=== PATIENT | female | born 1980 | race Caucasian/White ===

== ENCOUNTER 2024-12-11 21:58 | Inpatient (IN) | payer MEDICAID ==
[~2024-12-11] VITALS: Ht 154.9 cm; Wt 70.0 kg
--- NOTE | 2024-12-11 22:14 | ELECTROCARDIOGRAPH REPORT ---
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 Marlena Gagnon Measurements Intervals [place] Rate: 64 P: 31 AR: 125 QRS: 36 QRSD: 106 T: 33 QT: 435 QTc: 449 Interpretive Statements Sinus rhythm Probable left atrial enlargement RSR' in V1 or V2, right VCD or RVH Electronically Signed On 12-11-2024 23:33:[address] Marlena Gagnon Please click the below link to view image of tracing.
[2024-12-11 22:19] LABS: MEAN PLATELET VOLUME 7.9 FL (7.4-10.4); RED CELL DISTRIBUTION WIDTH 13.8 % (11.5-14.5)
--- NOTE | 2024-12-11 22:29 | Physician Documentation ---
History of Present Illness ~ Chief Complaint: Syncope Stated Complaint: SYNCOPAL EPISODE Time Seen by MD: 22:00 OK to notify your PCP?: Yes Source: patient, RN/MD, RN notes reviewed, old records Mode of Arrival: EMS Exam Limitations: no limitations HPI 44 year old female with a history of cardiac ablations presents to the emergency department via EMS for complaints of a syncopal episode that happened tonight. She states she was standing at her fathers truck talking with family when she collapsed and became unresponsive. She states prior to her episode she felt di zzy and light headed but denies any chest pain or palpitations. Patient was on blood thinners and had a positive head strike. She denies any drugs or alcohol. Of note, she states that she has not been sleeping well and having a lot of stress causing insomnia. Medication Reconciliation Allergies: Coded Allergies: hydrocodone (Verified Allergy, Unknown, 12/11/24) Scheduled Ascorbic Acid (Vitamin C), 1,000 TAB PO DAILY, (Reported) Multivitamin (Multi Vitamin Daily), 1 TAB PO DAILY, (Reported) Past Medical History Past Medical History: *CARDIOVASCULAR* Past Surgical History: other Smoking Status: Never smoker Alcohol Use: None Drug Use: none Review of Systems All Other Systems at this time: Reviewed and Negative ROS As stated above in the HPI, otherwise all systems are reviewed and negative. Physical Exam Vital Signs: RN Vital Signs have been reviewed: Yes, Temperature: 97.8, Source: Oral, Heart Rate: 62, Respiratory Rate: 10, BP: 106/62, Pulse Oximetry: 99, Weight: 70.000 Pulse Oximetry Reflects: adequate oxygenation Physical Exam General: The patient is well developed, well nourished, nontoxic appearing and is in no acute distress. Skin: [place], warm and dry with no rashes. HEENT: Head was normocephalic and atraumatic. Eyes - pupils equal, round, reactive to light and accommodation. Extraocular movements were intact. Conjunctivae were nonicteric. Ears - bilateral tympanic membranes were normal. The mouth and oropharynx were clear with moist mucous membranes. There were no pharyngeal exudates or erythema. Neck: Supple and nontender. There was no jugular venous distention, lymphadenopathy, thyromegaly or masses. Chest: Clear to auscultation bilaterally without wheezes, rales or rhonchi. No accessory muscle use. No dullness to percussion. Heart: Rate regular and rhythmic. S1, S2. No murmurs. Palpation of the chest wall was normal. No rubs or thrills. Abdomen: Soft, nontender and nondistended. Positive bowel sounds. No guarding or rebound. No hepatosplenomegaly or palpable masses. Extremities: No cyanosis, clubbing or edema. The patient moves all extremities. Pulses were equal and symmetric. Neurologic: Cranial nerves II-XII were intact. Sensation was intact to light touch throughout. Motor strength was 5/5 in all four extremities. Deep tendon reflexes were intact in both upper and lower extremities. Psychologic: The patient was oriented to person, place and time. The patient demonstrated appropriate judgement and insight. Progress Progress Note 2330: The case was discussed with the hospitalist who was informed on the patients case and kindly agreed to admission. Results/Orders Reviewed/noted all lab results: Yes Results/Orders Orders - NICOLAS GAGNON MD Monitor (12/11/24 22:07) Saline Lock (12/11/24 22:07) Oxygen (12/11/24 22:07) Electrocardiogram (12/11/24 22:07) Ct Head (12/11/24 22:28) Page Hospitalist (12/11/24 22:54) Fill Out Med Reconciliation (12/11/24 22:54) Echocardiogram (12/11/24 23:05) Completed Orders - NICOLAS GAGNON MD Cbc/Diff (12/11/24 22:07) BMP (12/11/24 22:07) PBNP (12/11/24 22:07) Electrocardiogram (12/11/24 22:07) Hs Troponin I W Calculations (12/11/24 22:07) Hs Troponin I W Calculations (12/12/24 00:07) Hs Troponin I W Calculations (12/12/24 01:07) Ct Head (12/11/24 22:28) Drug Screen, Urine (12/11/24 22:28) Normal Saline 1000ml (0.9% Sodium Chlori (12/11/24 22:30) Ethanol (12/11/24 22:12) Potassium Cl Sr Tablet (K-Dur Tablet) (12/11/24 22:55) Magnesium Oxide Tablet (Mag-Ox 400mg Tab (12/11/24 22:55) Liver Panel (12/11/24 22:12) MG (12/11/24 22:12) Normal Saline 1000ml (0.9% Sodium Chlori (12/11/24 23:00) Pt Inr (12/11/24 22:57) PTT (12/11/24 22:57) Ondansetron Inj. (Zofran 4mg/2ml Vial) (12/11/24 23:12) Hgb A1c (12/11/24 22:12) Medications Received in ER Medications (Trade) Dose Ordered Sig/Odalis Route PRN Reason Start Time Stop Time Status Last Admin Dose Admin (0.9% sodium chloride (NS) 1000ml IV soln) 1,000 ml ONCE ONCE IVB 12/11/24 22:30 12/11/24 22:31 DC 12/11/24 22:46 1,000 ML (K-DUR tablet) 20 meq ONCE ONCE PO 12/11/24 22:55 12/11/24 23:12 DC 12/11/24 23:21 20 MEQ (mag-Ox 400mg tablet) 400 mg ONCE ONCE PO 12/11/24 22:55 12/11/24 22:56 DC 12/11/24 23:21 400 MG (0.9% sodium chloride (NS) 1000ml IV soln) 1,000 ml ONCE ONCE IVB 12/11/24 23:00 12/11/24 23:12 DC 12/11/24 23:21 1,000 ML (Zofran 4mg/2ml vial) 4 mg ONCE STAT IV 12/11/24 23:12 12/11/24 23:14 DC 12/11/24 23:21 4 MG Vital Signs 12/11/24 12/11/24 12/11/24 12/11/24 22:00 22:10 22:17 22:52 Temp 97.8 Pulse 76 62 66 Resp 16 16 10 12 B/P (MAP) 104/63 106/62 (77) 98/69 (79) Pulse Ox 98 99 99 12/11/24 12/11/24 12/11/24 23:06 23:07 23:07 Pulse 63 93 71 B/P (MAP) 98/59 103/75 103/72 Laboratory Tests Test 7/24/25 22:12 White Blood Count 9.3 Red Blood Count 4.56 Hemoglobin 14.1 Hematocrit 40.9 Mean Corpuscular Volume 89.6 Mean Corpuscular Hemoglobin 31.0 Mean Corpuscular Hemoglobin Concent 34.6 Red Cell Distribution Width 13.8 Platelet Count 343 Mean Platelet Volume 7.9 Neutrophils (%) (Auto) 44.0 Lymphocytes (%) (Auto) 46.9 Monocytes (%) (Auto) 5.0 Eosinophils (%) (Auto) 2.8 Basophils (%) (Auto) 1.3 H Neutrophils # (Auto) 4.1 Lymphocytes # (Auto) 4.3 Monocytes # (Auto) 0.5 Eosinophils # (Auto) 0.3 Basophils # (Auto) 0.1 CBC Comment Prothrombin Time 10.2 INR International Normalized Ratio 1.0 Activated Partial Thromboplast Time 32 Coagulation Comments Sodium Level 139 Potassium Level 3.1 L Chloride Level 102 Carbon Dioxide Level 24.6 Anion Gap 12 Blood Urea Nitrogen 10 Creatinine 0.84 Estimated GFR/1.73 m2 73 BUN/Creatinine Ratio 11.9 Glucose Level 203 H Hemoglobin A1c 5.5 Calcium Level 9.3 Magnesium Level 2.1 Total Bilirubin 0.3 Direct Bilirubin 0.1 Aspartate Amino Transf (AST/SGOT) 18 Alanine Aminotransferase (ALT/SGPT) 23 Alkaline Phosphatase 60 Troponin I High Sensitivity 5 Pro-B-Type Natriuretic Peptide 115 Total Protein 7.2 Albumin 3.9 Globulin 3.3 Albumin/Globulin Ratio 1.2 Chemistry Comments Ethyl Alcohol Level < 10 Re-Evaluation Re-Evaluation : Re-Evaluation: Improved Progress Patient was seen and examined. Patient is given reassurance. The patient received fluids her blood pressure was a bit low. There was no reason for her to be dehydrated or hypotensive. Patient's laboratory work did not suggest any signs of dehydration. CBC WBC all within normal limits without leukocytosis or anemia. Patient is chemistry LFTs and cardiac enzymes were all within normal limits except glucose slightly elevated to 0 three patient is potassium borderline low at 3.1 patient received both magnesium and potassium all pills magnesium level was therapeutic at 2.1 tox screen was positive only for marijuana negative alcohol or any other drugs in the urinalysis showed a specific gravity of 1.005 also no signs of any dehydration at this time. Patient had a CT of the head which showed no mass or intracranial bleed. After fluids and electrolytes cardiac etiology was considered she did have a history of ablation there was no report of SVTs her symptoms in the past for slightly different which were syncopal episode but she had pain radiating to her left arm that did not occur at this time. I then contacted the hospitalist who kindly agreed to admit the patient for further workup and care. Continuous court monitor interpretation shows normal sinus rhythm heart rate 70s, no ectopy, normal, my interpretation. Pulse oximetry monitor interpretation shows normal oxygenation 98% room air, normal, my interpretation. 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 Nicolas Gagnon Measurements Intervals [place] Rate: 64 P: 31 [place]: 125 QRS: 36 QRSD: 106 T: 33 QT: 435 QTc: 449 Interpretive Statements Sinus rhythm Probable left atrial enlargement RSR' in V1 or V2, right VCD or RVH Electronically Signed On 12-11-2024 23:33:[address] Nicolas Gagnon Please click the below link to view image of tracing. EKG Date and Time:12/11/242209 Electronically Signed by: NICOLAS GAGNON MD Date and Time: 12/11/[address] : Impression EXAM: CT CT HEAD INDICATION: aloc TECHNIQUE: CT of the head without intravenous contrast. Radiation Dose : 1. Head: CT Dose: CTDI volume is 53.15 mGy. Dose-length product is 896.7 mGy*cm The dose indicators for CT are the volume Computed Tomography (CT) Dose Index (CTDIvol) and the Dose Length Product (DLP), and are measured in units of mGy and mGy-cm, respectively. These indicators are not patient dose, but values generated from the CT scanner acquisition factors. The report includes radiation exposure data for exposures received during this examination. COMPARISON: None FINDINGS: There is no evidence of acute intracranial hemorrhage, extra-axial collection, mass effect, midline shift, herniation or hydrocephalus. The ventricles, sulci and cisterns are age appropriate. The garcia-white differentiation is intact. The visualized paranasal sinuses and mastoid air cells are clear. The surrounding soft tissues and osseous structures are unremarkable. IMPRESSION: 1. No acute intracranial abnormality. Radiation optimization: All CT scans at this facility use at least one of these dose optimization techniques: automated exposure control mA and/or kV adjustment per patient size (includes targeted exams where dose is matched to clinical indication) or iterative reconstruction. Electronically Signed by:JUVENAL PADILLA MD Date & Time: 12/11/24 0440 Heart Score: Heart Score Response (Comments) Value History Slightly Suspicious 0 EKG Normal 0 Age 45-64 1 Risk Factors 1 or 2 risk factors 1 Troponin Normal limit 0 Total 2 Medical Decision Making Additional info obtained from: old records Differential Dx:Considerations: Include: anemia, CVA, dehydration, dysrhythmia, electrolyte disorder, hypoglycemia, hypovolemia, myocardial infarction, pulmonary embolus, vasovagal, other Departure Time of Disposition: 23:49 Disposition: ADMITTED INPATIENT Admitted to Inpatient Unit: yes, to hospitalist Admission Level of Care: PCU with Tele Impression: Primary Impression: Syncope Qualified Codes: R55 - Syncope and collapse Additional Impression: Hypokalemia Condition: Guarded Referrals: NO PRIMARY CARE PROVIDER (PCP) Education Educated: Patient Educated regarding: diagnosis Signature Scribe Signature: Scribed for Nicolas aGgnon MD by Aj Maier . 12/11/24 22:39 Attestation: The note accurately reflects work and decisions made by me.Nicolas Gagnon MD 12/11/24 22:29 NICOLAS GAGNON MD Dec 11, 2024 22:29 AJ DELGADO Dec 11, 2024 22:39
[2024-12-11 22:41] LABS: CREATININE 0.84 MG/DL (0.40-0.90); ETHANOL < 10 MG/DL (<10); PRO BRAIN NATRIURETIC PEPTIDE 115 PG/ML (0-125); TOTAL CARBON DIOXIDE 24.6 MMOL/L (24-32); eCRCL 64 ML/MIN; eGFR 73 ML/MIN
[2024-12-11] MEDS: normal saline 1000ML IV soln IVB ONE ×2 (22:46→23:21)
--- NOTE | 2024-12-11 22:58 | RADIOLOGY REPORT ---
EXAM: CT CT HEAD INDICATION: aloc TECHNIQUE: CT of the head without intravenous contrast. Radiation Dose : 1. Head: CT Dose: CTDI volume is 53.15 mGy. Dose-length product is 896.7 mGy*cm The dose indicators for CT are the volume Computed Tomography (CT) Dose Index (CTDIvol) and the Dose Length Product (DLP), and are measured in units of mGy and mGy-cm, respectively. These indicators are not patient dose, but values generated from the CT scanner acquisition factors. The report includes radiation exposure data for exposures received during this examination. COMPARISON: None FINDINGS: There is no evidence of acute intracranial hemorrhage, extra-axial collection, mass effect, midline s hift, herniation or hydrocephalus. The ventricles, sulci and cisterns are age appropriate. The garcia-white differentiation is intact. The visualized paranasal sinuses and mastoid air cells are clear. The surrounding soft tissues and osseous structures are unremarkable. IMPRESSION: 1. No acute intracranial abnormality. Radiation optimization: All CT scans at this facility use at least one of these dose optimization ronny hniques: automated exposure control mA and/or kV adjustment per patient size (includes targeted exam s where dose is matched to clinical indication) or iterative reconstruction.
[2024-12-11 23:11] LABS: APTT 32 SECONDS (22-32); INR 1.0 INR
[2024-12-11] MEDS: ondansetron/PF 4mg/2ml inj IV STA (23:21)
[2024-12-11] MEDS: potassium Cl 20 mEq SR tablet PO ONE (23:21)
[2024-12-11] MEDS ORDERED: MULT-1085 PO (23:54)
[2024-12-11] MEDS ORDERED: ASCO100031 PO (23:54)
[2024-12-12] VITALS (9 sets, daily range): BP systolic 95–125; BP diastolic 56–84; PULSE 58–97; RESP 16–18; TEMP 97.5–98.1; O2SAT 98–100
[2024-12-12 01:25] LABS: URINE AMPHETAMINE SCREEN NEGATIVE (Neg); URINE BARBITUATE SCREEN NEGATIVE (Neg); URINE BENZODIAZEPINES SCREEN NEGATIVE (Neg); URINE CANNABINOID SCREEN POSITIVE (Neg); URINE COCAINE SCREEN NEGATIVE (Neg); URINE METHADONE SCREEN NEGATIVE (Neg); URINE OPIATE SCREEN NEGATIVE (Neg)
[2024-12-12 01:26] LABS: URINE PHENCYCLIDINE SCREEN NEGATIVE (Neg)
[2024-12-12] MEDS ORDERED: mag hydrox/Alum hydrox/simeth 30ml oral suspension PO PRN (02:25)
[2024-12-12] MEDS ORDERED: magnesium sulf-water 2g/50mL 50 ML IV PRN (02:25)
[2024-12-12] MEDS ORDERED: potassium Cl 40MEQ/1/2NS 520ml 520 ML IV PRN (02:25)
[2024-12-12] MEDS ORDERED: HYDROcodone/acetaminophen 5mg/325mg tablet PO PRN (02:25)
[2024-12-12] MEDS ORDERED: magnesium sulf-water 4G/100mL 100 ML IV PRN (02:25)
[2024-12-12] MEDS ORDERED: magnesium hydroxide 30ml (MOM) UD suspension PO PRN (02:25)
[2024-12-12] MEDS ORDERED: potassium Cl 20 mEq SR tablet PO PRN ×2 (02:25)
[2024-12-12] MEDS ORDERED: ondansetron/PF 4mg/2ml inj IV PRN (02:25)
[2024-12-12] MEDS ORDERED: magnesium Cl slow-release 64mg tablet PO PRN (02:25)
--- NOTE | 2024-12-12 02:29 | HISTORY AND PHYSICAL-Residence ---
History & Physical Providers to CC Resident Creating Document: KESHAWN SOLORZANO, RES CC: PASTOR GALDAMEZ MD ~ History of Present Illness Reason for Admit\Complaint: dizziness History of Present Illness A 44-year-old female with past medical history of SVT status post ablation in 2011 presented to the ED after she had an episode of passing out at about 9:00 p.m. today. Patient states that she was feeling dizzy and nauseous prior to the episode and has lost consciousness for less than a minute. Patient denies postictal confusion. Patient states that during the episode patient felt the lower extremities were all tingling with hands curling up and feeling tight. At the time of the episode, patient was standing out for about 5 minutes patient fell and hit her elbow on the right side and is painful. Patient denies chest pain, palpitation, shortness of breath prior to the episode. Patient's blood sugar was not checked at the time of the episode or during the transit to the ED. Allergies: Coded Allergies: hydrocodone (Verified Allergy, Unknown, 12/11/24) Home Medications Home Medications Active Reported Multi Vitamin Daily (Multivitamin) 1 Each Tablet 1 Tab PO DAILY 30 Days Vitamin C (Ascorbic Acid) 1,000 Mg Tablet 1,000 Tab PO DAILY 15 Days DIRECTED Past Medical History Past Medical History SVT status post ablation Ruptured ovarian cyst Ectopic Past Surgical History Surgical History Comment Hysterectomy Ablation Past Social History Social History Comment Smoked one pack of cigarettes for 32 years, quit two years ago Now is vaping tobacco Consumes marijuana Consumes alcohol occasionally Does not consume drugs Lives at home with son Primary care : [facility] Alcohol Use: None Drug Use: None ROS ROS All other systems reviewed in full and negative except for the pertinent positives mentioned in the HPI Exam Vitals: Vital Signs Date Time Temp Pulse Resp B/P (MAP) Pulse Ox O2 Delivery O2 Flow Rate FiO2 12/12/24 02:00 69 12/12/24 01:13 16 94/55 (68) 97 12/11/24 22:00 97.8 General: General: Alert, awake, oriented, not in acute distress HEENT: PERRLA, no icterus, pallor, lymphadenopathy, carotid bruit Respiratory system: Bilateral vesicular breath sounds heard, no adventitious breath sounds CVS: S1-S2 heard, no murmurs/rubs/gallop GI: Soft, nontender, no organomegaly, no guarding/rigidity, bowel sounds present Neuro: No focal neurological deficits present Extremities: No edema cyanosis clubbing/deformities Skin: Warm and dry Diagnostic Data Last Recorded Lab Results: 12/11/24221112/11/242211 Diagnostic Data: Laboratory Tests Test 12/11/24 22:12 Prothrombin Time 10.2 SECONDS (9.0-12.0) INR International Normalized Ratio 1.0 INR Activated Partial Thromboplast Time 32 SECONDS (22-32) Coagulation Comments Advance Care Planning Advanced Care plannin - 30 Minutes (I spent 20 minutes discussing various resuscitative measures and the patient decided to be full code) Additional Plan Assessment: A 44-year-old female with past medical history of SVT status post ablation presented to the ED after an episode of syncope. Patient is admitted for the evaluation management of syncope. Plan: Syncope, under evaluation Vasovagal vs hypoglycemia PE, rule out CT head: Negative for any acute intracranial disease EKG: Normal sinus rhythm Orthostatic vitals negative Follow up with D-dimer U tox positive for marijuana Follow up with echo, D-dimer Continue to monitor telemetry Fall Follow up with Right Elbow x-ray SVT status post ablation Not on any medication right now Code status: Full code Diet: Heart healthy DVT prophylaxis: Heparin Disposition: Admit to ortho, follow up with echo Keshawn Solorzano MD Internal Medicine, PGY 2 Discussed case with resident and agree with the assessment and plan above with no changes. Pastor Galdamez MD Critical Care Date of Service: Dec 11, 2024 Billing Provider: PASTOR GALDAMEZ MD, SIVA, RES Dec 12, 2024 02:29 PASTOR GALDAMEZ MD Dec 13, 2024 10:12
[2024-12-12 02:45] LABS: LEUKOCYTE ESTERASE ,URINE NEGATIVE (Neg); NITRITES, URINE NEGATIVE (Neg); OCCULT BLOOD,URINE NEGATIVE (Neg)
[2024-12-12 02:46] LABS: UA COLLECTION TYPE CLN CATCH MIDSTREAM
[2024-12-12] MEDS: normal saline 1000ml 1,000 ML IV SCH (03:13)
--- NOTE | 2024-12-12 06:24 | RADIOLOGY REPORT ---
CLINICAL INDICATION: right elbow pain after fall TECHNIQUE: DI ELBOW,LIMITED (AP/LAT) Comparison: None FINDINGS/IMPRESSION: : There is no evidence of acute fracture or dislocation. Soft tissues are unremarkable.
[2024-12-12] MEDS: heparin, porcine 5000 units/ml vial SQ SCH (08:00)
[2024-12-12] MEDS ORDERED: ASCORBIC ACID PO SCH (08:00)
[2024-12-12] MEDS: K and/or MAG REPLACEMENT MC SCH (08:00)
[2024-12-12] MEDS: docusate sod 100mg capsule PO SCH (08:00)
[2024-12-12] MEDS ORDERED: heparin, porcine 5000 units/ml vial SQ SCH (08:00)
[2024-12-12] MEDS ORDERED: non-formulary drug (Multivitamin (Multi Vitamin Daily) 1 TAB) PO SCH (08:00)
[2024-12-12] MEDS: multivitamins, therapeutics tablet PO SCH (08:46)
--- NOTE | 2024-12-12 15:21 | PROCEDURE NOTE ---
Procedure Note Providers to CC ~ Interpretation: Susan Moore EEG Note # Demographics Type of EEG Read: - Routine EEG - video Patient Location: - Inpatient - STAT read requested First Name: Constanza Last Name: Antonio Date of : 1980 Age: 44 Gender: Female Facility: [facility] Time of Initial Page ([place] ): 12/12/2024 13:44 Time of Return Call ([place] Time): 12/12/2024 13:44 # EEG Interpretation Start Time of EEG Read ([place] ): 12/12/2024 14:05 Stop Time of EEG Read ([place] ): 12/12/2024 14:25 Duration: 0h 20m Technical Details: - The EEG electrodes were placed using the standard International 10-20 system of electrode placement. Video and an accessory EKG lead were used during the course of this study. - This study was recorded using the [id number] EEG software Indication: - seizure # Description Photic Stimulation: Performed Hyperventilation: performed Phases Captured: - awake - drowsy Symmetry: symmetric Posterior Dominant Rhythm: - present, attenuates on eye opening 11 Hz Amplitude: normal Reactivity: yes Variability: yes Continuity: continuous # Abnormalities Stimulation: - photic stimulation does NOT cause abnormalities - hyperventilation does NOT cause abnormalities Epileptiform Abnormalities: - NOT present Focal Slowing: no Seizure: - NOT present # Impression Impression: normal # Clinical Correlation Clinical Correlation: A normal EEG does not exclude nor support the diagnosis of epilepsy. # Logistics Telemedicine: remote EEG review: EEG reviewed remotely # Demographics First Name: Constanza Last Name: Antonio Facility: [facility] ROOSEVELT PANDYA MD Dec 12, 2024 15:21
--- NOTE | 2024-12-12 15:30 | ELECTROCARDIOGRAPH REPORT ---
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 Berhane Cordova Measurements Intervals [place] Rate: 53 P: 42 IA: 125 QRS: 29 QRSD: 108 T: 29 QT: 425 QTc: 399 Interpretive Statements Sinus bradycardia Abnormal R-wave progression, early transition Electronically Signed On 12-13-2024 12:03:[address] Berhane Cordova Please click the below link to view image of tracing.
--- NOTE | 2024-12-12 16:06 | CARDIOLOGY REPORT ---
APPROVED REPORT EXAM: Comprehensive 2D, Doppler, and color-flow Echocardiogram. 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 117.7 cm/s AoV VTI 25.6 cm AO Peak GR. 5.5 mmHg AO Mean GR. 3 mmHg LVOT VTI 22.20 cm LVOT Peak Nate. 107.0 cm/s BREANN(VTI)/BSA 2.68 cm2/m2 BREANN (VTI) 2.68 cm2 Mitral Valve MV E Velocity 86.7 cm/s MV DECEL TIME 256 ms MV A Velocity 53.7 cm/s E/A Ratio 1.6 TDI Lateral E' P. V15.70 cm/s E/Lateral E' 5.5 Pulmonary Valve PAEDP11.36 mmHg Tricuspid Valve TR P. Velocity 225 cm/s RAP ESTIMATE 10 mmHg TR Peak Gr. 20 mmHg RVSP 30 mmHg LEFT VENTRICLE Normal LV size and wall thickness. Overall systolic function is normal. Overall LVEF is 70%. RIGHT VENTRICLE RV is normal size and function. PA systolic pressure of 30 mm of mercury. ATRIA The left atrium size is normal. AORTIC VALVE Trileaflet AV appears mildly sclerotic without stenosis. No insufficiency. MITRAL VALVE Mitral valve leaflets are mildly thickened with mild annular calcification. No stenosis. Trace regurg itation. TRICUSPID VALVE The tricuspid valve is normal in structure with trace regurgitation. PULMONIC VALVE The pulmonary valve is normal in structure with physiologic insufficiency. GREAT VESSELS The aortic root is normal in size. The ascending aorta is normal in size. The IVC is normal in size a nd collapses >50% with inspiration. PERICARDIUM Normal pericardium. No effusion. Other Information Study Quality: Adequate Conclusion Overall LVEF is 70%. Normal LV size and wall thickness. Overall systolic function is normal. RV is normal size and function. PA systolic pressure of 30 mm of mercury. Trileaflet AV appears mildly sclerotic without stenosis. No insufficiency. Mitral valve leaflets are mildly thickened with mild annular calcification. No stenosis. Trace regu rgitation. The tricuspid valve is normal in structure with trace regurgitation. The pulmonary valve is normal in structure with physiologic insufficiency. Normal pericardium. No effusion.
--- NOTE | 2024-12-12 16:47 | [facility] NE[facility] CONSULT REPORT ---
[facility] Procedure Note [facility] Procedure Note Consult [facility] Note # Demographics Consult Type: General Neurology Patient Location: Inpatient First Name: ALFONSO Last Name: MARSHAL Date of : 1980 Age: 44 Gender: Female Facility: [facility] Time of Initial Page (): 12/12/2024 16:27 Time of Return Call ( Time): 12/12/2024 16:28 # HPI Chief Complaint: Syncope History: 44 yo F with hx of SVT s/p ablation p/w a syncopal episode last night. She was standing at the truck door and fell dizzy, lightheaded and nauseated. She then passed out. No witnessed jerking movement. It took her a min to wake up. No tongue biting or urinary incontinence. She then was not able to open her eyes for 10-15 min. No hx of seizure. # Exam Mental Status: - awake - alert and oriented x 3 - follows commands Language: - normal speech - no aphasia - no dysarthria Cranial Nerves: - extra ocular movements intact - no facial droop - normal facial sensation Motor: - normal strength - normal bulk - no drift Sensory: - normal sensation Cerebellar: - normal cerebellar exam # ROS Additional: - complete review of systems otherwise negative # PMH-FH-SH Past Medical History: SVT # Data Head CT: - no bleed # Assessment Impression: Syncopal episode, could be orthostatic vs cardiac No clear seizure semiology and EEG is normal # Plan Imaging: (urgency: routine): - MRI Brain with AND without contrast Diagnostic Test: - echo without bubble study Therapy/Evaluation: - PT/OT evaluation - Check orthostatic VS Other: - If patient has any neurological deterioration please call me back immediately - telemetry monitoring # Logistics Attestation of consult completion: The patient is located at: [facility]. Facility staff participated in the visit. I performed this telemedicine visit from my offsite office utilizing interactive 2 way audio and visual telecommunication technology. Total time spent in telemedicine encounter: I spent 19 minutes reviewing clinical data and/or imaging, obtaining history, examining the patient, communicating with the onsite care team, and in preparation of this report. # Demographics First Name: ALFONSO Last Name: MARSHAL Facility: [facility] Electronically signed at 12/12/2024 16:46 ( Time) by Efra Jackson MD Neuro Consult Order placed for: Yes EFRA JACKSON MD Dec 12, 2024 16:47
--- NOTE | 2024-12-12 16:59 | PROGRESS NOTE- Residence ---
Progress Note - Resident Providers to CC Resident Creating Document: JUAN SCHMIDT, RES ~ Antibiotic Timeout Antibiotic Ordered?: No Subjective Patient was seen and examined at bedside, she denied any dizziness/ chest pain or palpitations since admission. In 2011, she underwent an ablation for suspected SVT, but she does not remember the etl consultant and has not followed up since that time. Additionally, she has not visited her primary care physician in recent years. Objective Vital Signs Date Time Temp Pulse Resp B/P (MAP) Pulse Ox O2 Delivery O2 Flow Rate FiO2 12/12/24 10:00 98.1 58 16 105/62 (76) 99 Room Air Result Diagram: 12/11/24 2212 12/12/24 0310 Awake , alert, and oriented x4, resting comfortably in the bed, in no acute distress HEENT: Atraumatic, normocephalic, EOMI, anicteric sclera ; pink conjunctiva Neck: Trachea midline. Supple, full range of motion, no JVD Cardiac: Regular rhythm, regular rate with no murmurs all over the precordium. Respiratory: Equal breath sounds bilaterally, no tachypnea, no wheezing ,rub or rales, Chest wall is symmetric and without deformity. Gastrointestinal: Abdomen symmetric, non-distended, soft, non-tender, normal bowel sounds x4 quadrant, normoactive, no hepatosplenomegaly Musculoskeletal: No pedal edema, no cyanosis Neurological: Speech is clear, alert, and oriented x 4. No motor or sensory deficit, deep tendon reflexes normal, cerebellar intact. Cranial nerves II-XII intact. Skin: Warm and dry Coagulation Studies Laboratory Tests Test 12/11/24 22:12 12/12/24 04:51 Prothrombin Time 10.2 SECONDS (9.0-12.0) INR International Normalized Ratio 1.0 INR Activated Partial Thromboplast Time 32 SECONDS (22-32) Coagulation Comments D-Dimer 0.36 MG/L FEU (0-0.50) D-Dimer Comment Advance Care Planning Advanced Care plannin - 30 Minutes Assessment Assessment The patient is a 44-year-old female with a remote history of ablation in 2011 for what she recalls as episodes of strong heart palpitations, though she is unsure if she was formally diagnosed with SVT. She now presents after a syncopal episode occurring around 9:00 p.m. She reported a clear prodrome of dizziness and nausea while standing, followed by brief loss of consciousness lasting less than one minute. There was no postictal confusion, and she recalls the event clearly. During the episode, she notes that her hands became stiff and curled inward, which resolved after she regained consciousness. She denies any tonic- clonic movements, tongue biting, incontinence, chest pain, or palpitations during this recent episode. She fell and struck her right elbow during the episode. There is no known seizure history. There was no blood glucose check during the event. Plan Plan 1. Syncope vasovagal syncope compared to orthostatic hypotension, cardiac arrhythmia, and seizure: The differential diagnosis involves: Vasovagal syncope (considering prodromal symptoms and standing position) Orthostatic hypotension Cardiac arrhythmia (due to the history of ablation) Seizure (less likely, but cannot be dismissed) Telemetry: Sinus bradycardia observed. EKG: Displays normal sinus rhythm. Orthostatic vitals: Negative results. U-tox: Positive result for marijuana. Labs: Coagulation studies within normal ranges; glucose and metabolic panel are normal. Imaging & diagnostics: CT scan of the head: No acute issues detected. X-ray of the right elbow: No fractures found. MRI of the brain and MRA of head and neck: Ordered and pending results. Echocardiogram: LVEF at 70% with no valve abnormalities. Carotid duplex ultrasound: Requested to assess for cerebrovascular factors. EEG: Results are normal. D-dimer: Levels are elevated. Plan: Continue telemetry monitoring Consulted cardiology, Dr. Rc Mckenzie met with the patient today Neurology consultation recommended MRI with and without contrast. Monitor blood glucose and electrolyte levels Conduct neuro checks every 12 hours Consider outpatient tilt-table testing if no inpatient cause is determined 2. Mechanical fall resulting in right elbow injury: X-ray of the right elbow shows no fractures Continue with symptomatic treatment 3. History of previous ablation in 2011 for palpitations (unsure if SVT): No recurrence of palpitations noted during the current episode Currently not on any antiarrhythmic medications Will maintain cardiac monitoring Outpatient cardiology follow-up, PCP: to be arranged upon discharge 4. Substance use: Tobacco and marijuana use Former smoker with a 32 pack-year history, now using tobacco vape Admitted to marijuana usage; confirmed by U-tox results Counseled on the potential cardiac and neurological impacts of marijuana and vaping Social work consult available as needed for support Code Status: Full code DVT Prophylaxis: Heparin SQ Nutrition: Heart healthy diet Prognosis: Guarded Disposition: Awaiting MRI, MRA head and neck Juan Schmidt MD Internal Medicine Resident, PGY-2 Date of Service: Dec 12, 2024 Billing Provider: MARCIA MCMAHON MD,JUAN, RES Dec 12, 2024 16:59
--- NOTE | 2024-12-12 18:51 | VASCULAR REPORT ---
Indication: Fainting episode Technique: Real-time ultrasound images of the neck vessels with garcia-scale, color and wave Doppler we re obtained. Comparison: None Findings: Mild atherosclerotic plaque. The following peak systolic velocities were recorded in cm/sec: Right internal carotid: 100 Right common carotid: 89 Right external carotid: 76 Right internal/common carotid ratio: 1.1 Left internal carotid: 73 Left common carotid: 73 Left external carotid: 82 Left internal/common carotid ratio: 1.0 Right vertebral artery: Patent with normal antegrade direction of flow. Left vertebral artery: Patent with normal antegrade direction of flow. Impression: No hemodynamically significant stenosis by velocity criteria.
--- NOTE | 2024-12-12 18:57 | CONSULTATION ---
DATE OF CONSULTATION: 12/12/2024 DICTATING PHYSICIAN: NERISSA Medina MD CARDIOLOGY CONSULTATION REQUESTING PHYSICIAN: REASON FOR EVALUATION: History of syncope. IDENTIFICATION: A 44-year-old female with history of syncope HISTORY OF PRESENT ILLNESS: The patient is a 44-year-old female with no prior history of diabetes, hypertension, hyperlipidemia with prior history of probably supraventricular tachycardia, status post ablation in 2011 at [facility] in [place] with no subsequent recurrences. Yesterday evening around 9:00 p.m., the patient had an episode of syncope. Before that she had dizziness and knew that she was going to pass out and apparently she was out when apparently the body was very stiff during that time. There were no tonic clonic seizures. No urinary incontinence. Subsequently EMS was called and then she was brought to the emergency room. The patient did have a postictal headache, confusion, and not feeling good for about 45 minutes. No prior history of any seizures in the past. Generally, the patient ambulates around the house and NYHA dyspnea class 2 to 3. No history of sustained palpitations. No prior history of syncope are preserved. No history of congenital rheumatic heart disease. No previous history of PR, stent, bypass, or CHF. PAST MEDICAL HISTORY: * Prior history of atrial arrhythmia, status post ablation. * No history of diabetes, hypertension, or hyperlipidemia. * History of peripheral arterial disease, status post ablation. PAST SURGICAL HISTORY: * SVT, status post ablation. * Ruptured ectopic in 2000. * Ovarian cyst surgery in 2007. * Hysterectomy. FAMILY HISTORY: The patient lives with her son. They used to live in [place]. They are relocated to [place] because of family. Her father is 70-year-old and alive. Mother at the age of 72 because of suicide. 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 SOCIAL HISTORY: The patient has been a smoker since age 18 to 42, has been vaping since then. No history of alcohol use. REVIEW OF SYSTEMS: HEENT: No hearing impairment. RESPIRATORY: No exertional chest pain. History of ablation in the past. MUSCULOSKELETAL: None. CENTRAL NERVOUS SYSTEMS: None. GENITOURINARY: None. MEDICATIONS: At home, multivitamin, vitamin C. No other prescription medications. PHYSICAL EXAMINATION: GENERAL: A 44-year-old female. Conscious, alert and oriented. Comfortable at rest. HEENT: Pupils equal and reactive. Oral mucosa moist. Head atraumatic and normocephalic. VITAL SIGNS: Pulse 64. Blood pressure of 105/62. NECK: Supple. No jugular venous distention. No JVD. Carotids equally well felt. CARDIAC: Regular rate and rhythm. S1, S2 is normal. No S3, S4 or murmurs. LUNGS: Clear to auscultation bilaterally. ABDOMEN: Soft. Bowel sounds present. EXTREMITIES: No edema, cyanosis, or clubbing. CENTRAL NERVOUS SYSTEM: No lateralizing signs. DIAGNOSTIC DATA: Echocardiogram, premature ejection fraction 70%, trace MR with the PA systolic pressure 30 mmHg. LABORATORY DATA: WBC 9.3, hemoglobin 14.2, hematocrit 40.9, platelet count 343. Sodium 133, potassium 3.1, chloride 102, carbon dioxide 24.6, BUN 30, creatinine 0.84, and troponin negative. ProBNP 115. IMPRESSION AND PLAN: 1. * A 44-year-old female with syncopal episode with some stiffness of the body with postictal phenomenon. Appears to be neurologic origin. Discussed with the resident. Patient had neurology consultation. Apparently preliminary EEG negative. The patient had cardiac workup as well. She does have a heart rate in the 50s, maybe drops to 40s during sleep. No hypotension associated with it. Ejection fraction within normal limits. No orthostatic hypotension. 2. * History of atrial arrhythmia, status post ablation in 2011. * Other accommodations include chronic tobacco abuse, prior history of smoking, now vaping. Counseled on cessation of the same. I recommend diet, weight loss, and exercise program. The importance of continued follow up with PMD and subsequent neurology until the cause of her syncope is resolved was discussed with patient. She expressed understanding BV MD Carol TID: [id number] RECEIPT: [id number] STACY/BLAYNE/DOTTIE PLASCENCIA
--- NOTE | 2024-12-12 20:37 | RADIOLOGY REPORT ---
CTA Chest with intravenous contrast INDICATION: syncope;dizziness. evaluate for pulmonary embolism COMPARISON: None TECHNIQUE: Multidetector spiral CTA of the chest was performed of the chest with intravenous contrast . PULMONARY ANGIOGRAPHY PROTOCOL was utilized using a bolus-tracking technique centered on the main p ulmonary artery. Axial, coronal and sagittal multiplanar and MIP reformats were performed. Radiation Dose : 1. Chest: CTDI volume is mGy. Dose-length product is mGy*cm The dose indicators for CT are the volume Computed Tomography (CT) Dose Index (CTDIvol) and the Dose Length Product (DLP), and are measured in units of mGy and mGy-cm, respectively. These indicators are not patient dose, but values generated from the CT scanner acquisition factors. The report includes radiation exposure data for exposures received during this examination. Findings: Pulmonary artery: No filling defect identified in the pulmonary arteries to suggest pulmonary embolis m. Lower neck: No abnormality demonstrated. Lungs: No abnormality demonstrated. Pleura: No abnormality demonstrated. Heart: No abnormality demonstrated. Thoracic aorta: No abnormality demonstrated. Mediastinum / Lymph Nodes: No abnormality demonstrated. Musculoskeletal: No abnormality demonstrated. Soft tissues: Unremarkable. Upper abdomen: Unremarkable. IMPRESSION: No evidence of pulmonary embolism or other abnormality.
[2024-12-12] MEDS ORDERED: GADOTERATE MEGLUMINE 7.5 MMOL/15 ML VIAL IV ONE (22:01)
--- NOTE | 2024-12-12 22:39 | RADIOLOGY REPORT ---
PROCEDURE: MR MRA NECK INDICATION: For any stroke or lesion. COMPARISON: None TECHNIQUE: MRA neck intravenous contrast. 3D image postprocessing was performed on a dedicated work station and images were used for interpretation and reporting. FINDINGS: Flow-related signal is noted in bilateral cervical carotid and vertebral arteries with no significant abnormality/stenosis demonstrated. Right vertebral artery is slightly dominant. IMPRESSION: No significant abnormality/stenosis demonstrated in bilateral cervical carotid and vertebral arteries .
--- NOTE | 2024-12-12 22:47 | RADIOLOGY REPORT ---
PROCEDURE: MR MRA HEAD INDICATION: For any stroke or lesion COMPARISON: None TECHNIQUE: MRA head without and with intravenous contrast. 3D image postprocessing was performed on a dedicated workstation and images were used for interpretation and reporting. FINDINGS: No abnormality is demonstrated in the intracranial ICAs, MCAs, and ACAs. Thet intracranial vertebral arteries, basilar artery, and machine sneller are also unremarkable. No evidence of large vessel occlusion, high -grade stenosis, or aneurysm. IMPRESSION: No abnormality demonstrated.
--- NOTE | 2024-12-12 23:05 | RADIOLOGY REPORT ---
PROCEDURE: MR MRI HEAD INDICATION: For sudden loss of consciousness, rule out any lesions or stroke EXAM DATE: 12/12/2024 08:08 PM COMPARISON: CT CT HEAD on DOS: 12/11/24 TECHNIQUE: MRI of the brain without intravenous contrast. FINDINGS: Diffusion weighted images of the brain demonstrate no evidence of acute infarction. There is no evide nce of intracranial hemorrhage, vasogenic edema, extra-axial collection, mass effect, midline shift or herniation. CSF spaces are normal with no hydrocephalus. The signal intensities of the brain pare nchyma are normal. No abnormal enhancement noted. Visualized paranasal sinuses and mastoid air cells are clear. Globes appear unremarkable. Soft tissue s and osseous structures are unremarkable. IMPRESSION: No intracranial abnormality identified.
[2024-12-13 05:51] VITALS: BP_SYST 127; BP_SYST 133; BP_DIAS 74; BP_DIAS 84; BP_DIAS 92; PULSE 63; PULSE 67; PULSE 69
[2024-12-13 06:49] LABS: MEAN PLATELET VOLUME 8.2 FL (7.4-10.4); RED CELL DISTRIBUTION WIDTH 13.5 % (11.5-14.5)
[2024-12-13 06:58] LABS: CHOL/HDL RATIO 3.6 (0.00-4.99); CREATININE 0.69 MG/DL (0.40-0.90); LDL CHOLESTEROL 89 MG/DL (50-100); TOTAL CARBON DIOXIDE 26.2 MMOL/L (24-32); eCRCL 78 ML/MIN; eGFR > 90 ML/MIN
--- NOTE | 2024-12-13 11:01 | [facility] NE[facility] CONSULT REPORT ---
[facility] Procedure Note [facility] Procedure Note [facility] Note # Demographics Consult Type: Follow-Up Phone Call Patient Location: Inpatient First Name: Constanza Last Name: Antonio Date of : 1980 Age: 44 Gender: Female Facility: [facility] Time of Initial Page (): 12/13/2024 09:22 Time of Return Call (): 12/13/2024 09:23 Phone Only Consult: 44F with hx of SVT who presented with episode of LOC for about a minute after which she felt stiff and had a brief period of confusion. MRIb and MRA head and neck done were negative for acute abnormality. EEG done was negative for seizure or epileptiform abnormality. Phone Agreement: - phone consult deemed mutually sufficient for patient care # Plan Other: - If patient has any neurological deterioration please call me back immediately Additional Recommendations: - No further inpatient work up indicated from neurology standpoint at this time given provided history and findings. If she has another episode could consider anti-seizure medication at that time. Should continue work up for cardiogenic/BP related causes per primary/PCP/cardiology # Logistics Attestation of consult completion: The patient is located at: [facility]. I performed this phone consultation from my offsite office Total time spent in telemedicine encounter: I spent 5 minutes in reviewing clinical data and/or imaging, obtaining history, communicating with the onsite care team, and in preparation of this report. # Demographics First Name: Constanza Last Name: Antonio Facility: [facility] Electronically signed at 12/13/2024 11:00 () by Kim Carrion DO Neuro Consult Order placed for: Yes KIM CARRION DO Dec 13, 2024 11:01
--- NOTE | 2024-12-13 13:17 | DISCHARGE SUMMARY-Residence ---
Discharge Summary Providers to CC Resident Creating Document: GABE CORCORAN RES CC: MARCIA MCMAHON MD ~ Discharge Summary Assessment 44-year-old female with remote history of s/p ablation in 2011 presented to the ER with chief complaints of an episode of syncope Admission Diagnosis: SYNCOPE WORK UP Hospital Course DATE OF ADMISSION: 12/11/2024 DATE OF DISCHARGE: 12/13/2024 Discharge Diagnosis\Comment: Syncope- unable to exclude vasovagal syncope 1st episode of seizure unable to exclude Sinus bradycardia SVT s/p ablation in 2011 Vaping Operations\Procedures: None Consultants: Dr. Medina, cardiology [place] tele neurology Complications: none Condition on DC: Stable Continued Medications: Ascorbic Acid (Vitamin C) 1,000 Mg Tablet 1000 TAB PO DAILY for 15 Days, #15 TAB 0 Refills DIRECTED Multivitamin (Multi Vitamin Daily) 1 Each Tablet 1 TAB PO DAILY for 30 Days, #30 TAB 0 Refills Discharge Summary: 44-year-old female with remote history of s/p ablation in 2011 presented to the ER with chief complaints of an episode of syncope Hospital course -patient telemetry showed sinus bradycardia. We consulted Cardiology and Cardiology recommended it is unlikely patient might be having cardiogenic syncope based on the history. We did EEG which was normal, MRI of the brain and MRA head and neck were normal, echo no significant valvular abnormalities with normal ejection fraction, carotid Doppler is normal, D-dimer said elevated and see tPA ruled out pulmonary embolism. Tele neurologist recommended that it could be 1st episode of seizure however no treatment is warranted at this time, and patient has to be followed up with the PCP to determine the further etiology of the syncope versus seizure. Informed of these findings with the patient and patient got upset that she has been here for two days and everything was normal and that we could not find out the reason for her syncope. Patient stated she is a single mother and she has been in a lot of stress recently. Again we discussed with the patient regarding the findings and then at this stage we were not sure of her etiology of syncope. We also informed the patient that it might be a 1st episode of seizure and usually we do not prescribe antiepileptics for 1st episode of seizure. Patient is recommended to follow up with PCP and ask for a referral to a neurologist. Patient agreed with this plan and is eager to go home. She is hemodynamically stable at the time of discharge and her physical condition is as follows General: Adult female, AAO x4, not in apparent distress Head: Normocephalic with an atraumatic Eyes: Pupils- 3mm, reacting to light, conjunctiva- anicteric Nose and throat: No polyps, septum- normal, no mucosal ulcers Neck: Supple, no lymphadenopathy, no carotid bruit Respiratory: No use of accessory muscles of respiration, Bilateral normal vesiscular breath sounds heard. No wheeze, rhochi or creps Cardiac: S1-S2 heard, rythm regular, no gallop/murmur Abdomen: non distended, no tenderness, no organomegaly, bowel sounds- heard Extremities: no clubbing, no pedal edema, no deformities, peripheral pulses- 2+ Skin: warm and dry, no rash, no purpura Neuro: No focal deficit, gross cranial nerve exam- normal Laboratory Tests Test 12/11/24 22:12 12/12/24 00:13 12/12/24 01:00 12/12/24 01:05 White Blood Count 9.3 X10'3 Red Blood Count 4.56 X10'6 Hemoglobin 14.1 g/dl Hematocrit 40.9 % Mean Corpuscular Volume 89.6 FL Mean Corpuscular Hemoglobin 31.0 PG Mean Corpuscular Hemoglobin Concent 34.6 g/dL Red Cell Distribution Width 13.8 % Platelet Count 343 X10'3 Mean Platelet Volume 7.9 FL Neutrophils (%) (Auto) 44.0 % Lymphocytes (%) (Auto) 46.9 % Monocytes (%) (Auto) 5.0 % Eosinophils (%) (Auto) 2.8 % Basophils (%) (Auto) 1.3 % Neutrophils # (Auto) 4.1 X10'3 Lymphocytes # (Auto) 4.3 X10'3 Monocytes # (Auto) 0.5 X10'3 Eosinophils # (Auto) 0.3 X10'3 Basophils # (Auto) 0.1 X10'3 CBC Comment Prothrombin Time 10.2 SECONDS INR International Normalized Ratio 1.0 INR Activated Partial Thromboplast Time 32 SECONDS Coagulation Comments Sodium Level 139 MMOL/L Potassium Level 3.1 MMOL/L Chloride Level 102 MMOL/L Carbon Dioxide Level 24.6 MMOL/L Anion Gap 12 Blood Urea Nitrogen 10 MG/DL Creatinine 0.84 MG/DL Estimated GFR/1.73 m2 73 ML/MIN BUN/Creatinine Ratio 11.9 Glucose Level 203 MG/DL Hemoglobin A1c 5.5 % Calcium Level 9.3 MG/DL Magnesium Level 2.1 MG/DL Total Bilirubin 0.3 MG/DL Direct Bilirubin 0.1 MG/DL Aspartate Amino Transf (AST/SGOT) 18 U/L Alanine Aminotransferase (ALT/SGPT) 23 U/L Alkaline Phosphatase 60 IU/L Troponin I High Sensitivity 5 ng/L 16 ng/L 20 ng/L Pro-B-Type Natriuretic Peptide 115 PG/ML Total Protein 7.2 G/DL Albumin 3.9 G/DL Globulin 3.3 G/DL Albumin/Globulin Ratio 1.2 Chemistry Comments Ethyl Alcohol Level < 10 MG/DL Troponin I High Sens Percent Delta 220 % 25 % Troponin I Hi Sens Absolute Change 11 ng/L 4 ng/L Urine Specimen Description Cln catch midstream Urine Color Yellow Urine Clarity Clear Urine pH 6.0 Urine Specific [place] <=1.005 Urine Protein Negative mg/dl Urine Glucose (UA) Negative mg/dl Urine Ketones Negative mg/dl Urine Occult Blood Negative Urine Nitrite Negative Urine Bilirubin Negative Urine Urobilinogen 0.2 E.U/dL Urine Leukocyte Esterase Negative Urine Culture Indicated Not ind Volume Urine Centrifuged 10 ml Urine Comment Urine Opiates Screen Negative Urine Methadone Screen Negative Urine Fentanyl Screen Negative Urine Barbiturates Screen Negative Urine Phencyclidine Screen Negative Urine Amphetamines Screen Negative Urine Benzodiazepines Screen Negative Urine Cocaine Screen Negative Urine Cannabinoids Screen Positive Drug Screen Comment Test 12/12/24 03:10 12/12/24 04:00 12/12/24 04:51 12/13/24 05:33 Potassium Level 4.0 MMOL/L 3.7 MMOL/L Lactic Acid Level 1.0 MMOL/L Magnesium Level 2.1 MG/DL 2.0 MG/DL Thyroid Stimulating Hormone (TSH) 0.90 ulU/ml D-Dimer Comment D-Dimer 0.36 MG/L FEU White Blood Count 5.4 X10'3 Red Blood Count 4.19 X10'6 Hemoglobin 12.9 g/dl Hematocrit 37.9 % Mean Corpuscular Volume 90.4 FL Mean Corpuscular Hemoglobin 30.8 PG Mean Corpuscular Hemoglobin Concent 34.1 g/dL Red Cell Distribution Width 13.5 % Platelet Count 271 X10'3 Mean Platelet Volume 8.2 FL Neutrophils (%) (Auto) 36.3 % Lymphocytes (%) (Auto) 51.4 % Monocytes (%) (Auto) 6.7 % Eosinophils (%) (Auto) 4.6 % Basophils (%) (Auto) 1.0 % Neutrophils # (Auto) 1.9 X10'3 Lymphocytes # (Auto) 2.8 X10'3 Monocytes # (Auto) 0.4 X10'3 Eosinophils # (Auto) 0.2 X10'3 Basophils # (Auto) 0.1 X10'3 CBC Comment Sodium Level 139 MMOL/L Chloride Level 107 MMOL/L Carbon Dioxide Level 26.2 MMOL/L Anion Gap 6 Blood Urea Nitrogen 8 MG/DL Creatinine 0.69 MG/DL Estimated GFR/1.73 m2 > 90 ML/MIN BUN/Creatinine Ratio 11.6 Glucose Level 87 MG/DL Calcium Level 8.5 MG/DL Albumin 3.3 G/DL Triglycerides Level 82 MG/DL Cholesterol Level 153 MG/DL LDL Cholesterol 89 MG/DL HDL Cholesterol 43 MG/DL Cholesterol/HDL Ratio 3.6 Chemistry Comments MRI head on 12/12 -No intracranial abnormality identified. Head/neck MRA No significant abnormality/stenosis demonstrated in bilateral cervical carotid and vertebral arteries. Echocardiogram on 12/12 Conclusion Overall LVEF is 70%. Normal LV size and wall thickness. Overall systolic function is normal. RV is normal size and function. PA systolic pressure of 30 mm of mercury. Trileaflet AV appears mildly sclerotic without stenosis. No insufficiency. Mitral valve leaflets are mildly thickened with mild annular calcification. No stenosis. Trace regurgitation. The tricuspid valve is normal in structure with trace regurgitation. The pulmonary valve is normal in structure with physiologic insufficiency. Normal pericardium. No effusion. CTPA on 12/12 No evidence of pulmonary embolism or other abnormality. Carotid ultrasound on 12/12 No hemodynamically significant stenosis by velocity criteria. Right elbow x-ray There is no evidence of acute fracture or dislocation. Soft tissues are unremarkable. Discharge medications can be found above, and she is sent home with the following recommendations Please follow up with your PCP within a week of the discharge Keep yourself well hydrated Ask your PCP for a referral to a neurologist Recommended to quit vaping Return to the ER in case of any recurrence of symptoms *Problems/Diagnosis: (1) Syncope Status: Acute Total Time Spent on D/C: > 30 Minutes Date of Service: Dec 13, 2024 Billing Provider: MARCIA MCMAHON MD Problem Qualifiers (1) Syncope: Syncope type: unspecified Qualified Codes: R55 - Syncope and collapse GABE CORCORAN, RES Dec 13, 2024 13:17
== END 2024-12-13 10:00 | disposition home or self-care (01) | DRG 53 ==
LOC: ER 21:59 → ED HOLD 23:32 → EDBEDREQ 12-12 00:59 → ORTHO 4S 12-12 01:43
PROVIDERS: ADMIT Internal Medicine Pulmonary Disease; ATTEND Family Medicine
PROC: 4A00X4Z Measurement of Central Nervous Electrical Activity, External Approach (ICD-10-PCS; principal; 2024-12-12)
PROC: B32T1ZZ Computerized Tomography (CT Scan) of Left Pulmonary Artery using Low Osmolar Contrast (ICD-10-PCS; 2024-12-12)
PROC: B3201ZZ Computerized Tomography (CT Scan) of Thoracic Aorta using Low Osmolar Contrast (ICD-10-PCS; 2024-12-12)
PROC: B32S1ZZ Computerized Tomography (CT Scan) of Right Pulmonary Artery using Low Osmolar Contrast (ICD-10-PCS; 2024-12-12)
DX: R56.9 Unspecified convulsions (principal); E87.6 Hypokalemia; F17.210 Nicotine dependence, cigarettes, uncomplicated; I73.9 Peripheral vascular disease, unspecified; S59.801A Other specified injuries of right elbow, initial encounter; W18.39XA Other fall on same level, initial encounter; Z90.710 Acquired absence of both cervix and uterus; Z88.5 Allergy status to narcotic agent; Y93.89 Activity, other specified; Y92.89 Other specified places as the place of occurrence of the external cause; Y99.8 Other external cause status
CPT/HCPCS: 36415; 70450; 70544; 70547; 70553; 71275; 73070; 80048; 80061; 80076; 80305; 80320; 81003; 83036; 83605; 83735; 83880; 84132; 84443; 84484; 85025; 85379; 85610; 85730; 87040; 87081; 93005; 93306; 93880; 95816; 96360; 99285; G0378; J1644; J2405; J7030; Q9967